=== PATIENT | male | born 1975 | race Caucasian/White ===

== ENCOUNTER 2021-06-27 16:01 | Emergency (ER) | payer OTHER ==
[~2021-06-27] VITALS: Ht 175.3 cm; Wt 89.1 kg
[2021-06-27 16:07] VITALS: BP 149/80
[2021-06-27] MEDS ORDERED: IBUPROFEN 600 MG TABLET PO ONE (16:15)
[2021-06-27] MEDS ORDERED: PERTUSS(ACELL),DIPH,TET VAC/PF 0.5 ML SYRINGE IM. ONE (16:15)
[2021-06-27] MEDS ORDERED: ACETAMINOPHEN 500 MG TABLET PO ONE (16:15)
[2021-06-27] MEDS ORDERED: LIDOCAINE 1% 10 ML VIAL ONE (16:35)
[2021-06-27] MEDS ORDERED: CeFAZolin 1 GM/DEXTROSE 50 ML IV ONE (17:00)
[2021-06-27 17:19] LABS: COVID AG,FIA SOURCE NASOPHARYNGEAL
[2021-06-27 17:36] LABS: BASOPHILS % (AUTO) 0.5 % (0.0-2.0); EOSINOPHILS % (AUTO) 1.6 % (1.0-6.0); HEMATOCRIT 35.4 % (41-53); HEMOGLOBIN 12.3 g/dL (13.5-17.5); LYMPHOCYTES % (AUTO) 24.9 % (22.0-44.0); MEAN CORPUSCULAR HEMOGLOBIN 30.1 pg (26.0-34.0); MEAN CORPUSCULAR HGB CONC 34.7 G/dL (31.0-37.0); MEAN CORPUSCULAR VOLUME 87 fL (80-100); MONOCYTES # (AUTO) 0.7 K/uL (0.1-1.0); MONOCYTES % (AUTO) 9.2 % (2.0-9.0); NEUTROPHILS # (AUTO) 5.2 K/uL (1.8-7.7); NEUTROPHILS % (AUTO) 63.8 % (40.0-70.0); PLATELET COUNT (AUTO) 304 K/uL (150-450); RED BLOOD CELL COUNT(AUTO) 4.08 MIL/uL (4.50-5.90); RED CELL DISTRIBUTION WIDTH 12.7 % (11.5-14.5)
[2021-06-27 17:41] LABS: CALCIUM, TOTAL 9.4 mg/dL (8.8-10.5); CREATININE 1.88 mg/dL (0.60-1.30)
[2021-06-27 17:47] LABS: ALBUMIN 4.1 g/dL (3.4-5.0); BILIRUBIN,TOTAL 0.2 mg/dL (0.1-1.0); TOTAL PROTEIN, SERUM 8.1 g/dL (6.4-8.2)
[2021-06-27] MEDS ORDERED: CEPH500C3 PO (18:05)
== END 2021-06-27 18:22 | disposition home or self-care (01) ==
LOC: EMS 16:07
DX: S61.212A Laceration without foreign body of right middle finger without damage to nail, initial encounter (principal); Z20.822 Contact with and (suspected) exposure to COVID-19; W45.8XXA Other foreign body or object entering through skin, initial encounter; Y93.89 Activity, other specified; Y92.89 Other specified places as the place of occurrence of the external cause; Y99.8 Other external cause status
CPT/HCPCS: 36415; 73130; 80053; 85025; 87426; 90471; 90715; 96365; 99284; J0690; J3490